=== PATIENT | female | born 1985 | race Caucasian/White ===

== ENCOUNTER 2018-02-09 11:39 | Outpatient (CLI) | END 2018-02-09 11:40 | disposition home or self-care (01) | LOC: RHC-LAB 11:39 | PROVIDERS: ATTEND Nurse Practitioner Family | DX: Z02.0 Encounter for examination for admission to educational institution (principal) | CPT/HCPCS: 36415; 86706; 86735; 86762; 86765; 86787 ==

== ENCOUNTER 2018-07-09 15:45 | Outpatient (CLI) ==
--- NOTE | 2018-07-09 16:03 | DI ---
EXAM: Two views of the thoracolumbar spine. History: Lower back pain and trauma. Findings: No acute fracture or subluxation. Disc space heights are preserved. Mild levoscoliosis of the lumbar spine with Byers angle of 10 degrees centered between L2 and L5. Impression: No acute osseous abnormality
== END 2018-07-09 15:46 | disposition home or self-care (01) ==
LOC: RAD 15:45
PROVIDERS: ATTEND Nurse Practitioner Family
DX: M54.9 Dorsalgia, unspecified (principal)

== ENCOUNTER 2018-08-17 09:00 | Outpatient (RCR) | END 2018-09-07 23:59 | PROVIDERS: ATTEND Family Medicine | DX: S16.1XXD Strain of muscle, fascia and tendon at neck level, subsequent encounter (principal); S39.012D Strain of muscle, fascia and tendon of lower back, subsequent encounter; M54.2 Cervicalgia; M54.5 Low back pain; M62.89 Other specified disorders of muscle ==

== ENCOUNTER 2019-05-05 08:48 | Outpatient (CLI) ==
--- NOTE | 2019-05-05 12:37 | DI ---
Exam: Four views of the lumbar spine. Comparison: None available. Reason for exam: Sacral coccygeal disorder. FINDINGS: No vertebral body height loss is seen. Levoscoliotic disease is seen in the lumbar spine. Degenerative findings are seen with osteophyte formation and facet hypertrophy. Impression: No acute fracture or listhesis in the lumbar spine with mild degenerative disease and scoliotic paredes [id number]
== END 2019-05-05 08:49 | disposition home or self-care (01) ==
LOC: RAD 08:48
PROVIDERS: ATTEND Family Medicine
DX: M53.3 Sacrococcygeal disorders, not elsewhere classified (principal)